=== PATIENT | male | born 1985 | race Caucasian/White ===

== ENCOUNTER 2023-01-09 21:45 | Emergency (ER) | payer OTHER ==
[2023-01-09] MEDS ORDERED: Sodium Chloride 0.9% 10 ML Syringe FLUSH PRN (22:19)
[2023-01-09] MEDS ORDERED: Lidocaine 2% 11 ML Jelly Filled Syringe ONE (22:22)
[2023-01-09] MEDS ORDERED: Lidocaine 2% Viscous Solution 15 ML UD PO ONE (22:23)
[2023-01-09] MEDS ORDERED: Aluminum Hydroxide/Magnesium Hydroxide/Simethicone Susp 30 ML Cup PO ONE (22:23)
[2023-01-09 22:26] LABS: BASOPHILS ABSOLUTE AUTO 0.01 K/mm3 (0.01-0.08); BASOPHILS PERCENT AUTO 0.1 % (0.1-1.2); EOSINOPHILS ABSOLUTE AUTO 0.06 K/mm3 (0.04-0.54); EOSINOPHILS PERCENT AUTO 0.6 (0.8-7.0); HEMATOCRIT 44.3 % (40.1-51.0); HEMOGLOBIN 15.2 gm/dl (13.7-17.5); IMMATURE GRAN ABSOLUTE AUTO 0.02 K/mm3 (0.00-0.10); IMMATURE GRAN PERCENT AUTO 0.2 % (<=1.0); LYMPHOCYTES ABSOLUTE AUTO 1.88 K/mm3 (1.32-3.57); MEAN CORPUSCULAR HEMOGLOBIN 30.1 pg (25.7-32.2); MEAN CORPUSCULAR HGB CONC 34.3 g/dl (32.2-35.5); MEAN CORPUSCULAR VOLUME 87.7 fl (79.0-92.2); MEAN PLATELET VOLUME 9.6 fl (9.4-12.3); MONOCYTES ABSOLUTE AUTO 0.62 K/mm3 (0.30-0.82); MONOCYTES PERCENT AUTO 6.6 % (5.3-12.2); NEUTROPHILS ABSOLUTE AUTO 6.81 K/mm3 (1.78-5.38); NEUTROPHILS PERCENT AUTO 72.5 % (34.0-67.9); PLATELET COUNT,PLT 254 K/mm3 (163-337); RED BLOOD CELL COUNT 5.05 M/mm3 (4.63-6.08)
[2023-01-09] MEDS ORDERED: Lidocaine 2% 11 ML Jelly Filled Syringe MUCMEM SCH (22:45)
[2023-01-09 22:48] LABS: A/G RATIO 1.2 (1-2); ALANINE AMINOTRANSFERASE,ALT 40 U/L (16-63); ALBUMIN 4.3 g/dl (3.4-5.0); ALKALINE PHOSPHATASE 92 U/L (46-116); ANION GAP 12.7 (5-15); ASPARTATE AMNIOTRANSFERASE,AST 19 U/L (15-37); BILIRUBIN TOTAL 0.3 mg/dL (0.2-1.0); BLOOD UREA NITROGEN,BUN 15 mg/dL (7-18); BUN/CREATININE RATIO 13.6 (14-18); CALCIUM 9.3 mg/dL (8.5-10.1); CARBON DIOXIDE,CO2 29 mEq/L (21-32); CHLORIDE,CL 104 mEq/L (98-107); CREATININE 1.1 mg/dL (0.7-1.3); EST CRCL DRUG DOSING (CG) 96.03 mL/min; ESTIMATED GFR 88 mL/min (>60); GLUCOSE RANDOM 134 mg/dL (70-99); POTASSIUM,K 3.7 mEq/L (3.5-5.1); PROTEIN TOTAL,TP 7.9 g/dl (6.4-8.2); SODIUM,NA 142 mEq/L (136-145)
[2023-01-09 22:49] LABS: TROPONIN I HIGH SENSITIVITY < 4 pg/mL (<=76)
[2023-01-09] MEDS ORDERED: Pantoprazole 40 MG Vial IVPUSH ONE (23:24)
[2023-01-09] MEDS ORDERED: Ketorolac 30 MG/ML SDV IVPUSH ONE (23:29)
== END 2023-01-10 00:24 | disposition home or self-care (01) ==
LOC: JD.ED 21:45
DX: R10.13 Epigastric pain (principal); Z88.8 Allergy status to other drugs, medicaments and biological substances
CPT/HCPCS: 36415; 71045; 80053; 84484; 85025; 93005; 96374; 96375; 99284; A9270; C9113; J1885; J3490